=== PATIENT | male | born 1980 | race Caucasian/White ===

== ENCOUNTER → 2021-08-29 | Outpatient (CLI) | payer OTHER ==
--- NOTE | 2021-08-30 02:14 | MR ---
EXAMINATION TYPE: MR knee RT wo con DATE OF EXAM: 08/29/2021 COMPARISON: None HISTORY: Rt knee pain Multiplanar multiecho imaging of the right knee with no contrast. The anterior and posterior cruciate ligaments are intact. There is mild knee joint effusion. The late ral meniscus is intact. Medial meniscus is within normal limits. The collateral ligaments are intact No evidence of a fracture. No focal bone destruction. No bone edema. The patella is intact. IMPRESSION: There is a mild knee joint effusion there is consistent with some mild synovitis. No evidence of liga ment or meniscal tear. No fracture
== END | disposition home or self-care (01) ==
LOC: RADMRIMAIN 19:40
PROVIDERS: ATTEND Orthopaedic Surgery
DX: M25.461 Effusion, right knee (principal)

== ENCOUNTER → 2022-12-30 | Outpatient (CLI) | payer MEDICARE ==
--- NOTE | 2023-01-01 17:26 | MR ---
EXAMINATION TYPE: MR knee RT wo con DATE OF EXAM: 12/30/2022 COMPARISON: 08/29/2021 HISTORY: Rt knee inner pain and swelling TECHNIQUE: Multiplanar, multisequence imaging of the right knee is performed without IV contrast. FINDINGS: There is no bone contusion or fracture. There is physiologic fluid within the joint space. The cruciate and collateral ligaments are intact There is no evidence of meniscal tear. The quadriceps and patellar tendons are intact. The articular cartilages in all 3 compartments of the knee are normal and there is no joint space troy rowing. IMPRESSION: No significant abnormality seen.
== END | disposition home or self-care (01) ==
LOC: RADMRIMAIN 12:48
PROVIDERS: ATTEND Orthopaedic Surgery
DX: M25.561 Pain in right knee (principal); M79.89 Other specified soft tissue disorders

== ENCOUNTER → 2023-12-07 | Outpatient (CLI) | payer MEDICARE ==
--- NOTE | 2023-12-08 10:19 | CA ---
Transthoracic Echo Report Name: Leonel Fine Age: 43 Gender: M : 1980 Exam Date: 12/07/2023 17:53 Exam Location: [place] [facility] Ht (in): 68 Wt (lb): 190 Ordering Physician: Tye De Dios DO Attending/Referring Phys: Letha Garcia PAC Dental Chairside Assistant Anisha Will RDCS Procedure CPT: Indications: R07.9 CHEST PAIN Cardiac Hx: Technical Quality: Good Contrast 1: Total Dose (mL): Contrast 2: Total Dose (mL): MEASUREMENTS (Male / Female) Normal Values 2D ECHO LV Diastolic Diameter PLAX 5.3 cm 4.2 - 5.9 / 3.9 - 5.3 cm LV Systolic Diameter PLAX 3.5 cm IVS Diastolic Thickness 0.9 cm 0.6 - 1.0 / 0.6 - 0.9 cm LVPW Diastolic Thickness 0.8 cm 0.6 - 1.0 / 0.6 - 0.9 cm LV Relative Wall Thickness 0.3 LVOT Diameter 2.2 cm LV Diastolic Volume MOD BP 125.4 cm??? 67 - 155 / 56 - 104 cm??? LV Systolic Volume MOD BP 44.7 cm??? 22 - 58 / 19 - 49 cm??? LV Ejection Fraction MOD BP 64.4 % >= 55 % LV Cardiac Index MOD BP 3182.5 cm???/min???m??? LV Diastolic Volume MOD 4C 122.0 cm??? LV Systolic Volume MOD 4C 47.9 cm??? LV Ejection Fraction MOD 4C 60.8 % LV Cardiac Index MOD 4C 2922.6 cm???/min???m??? LV Diastolic Length 4C 8.7 cm LV Systolic Length 4C 6.6 cm LV Diastolic Volume MOD 2C 126.8 cm??? LV Systolic Volume MOD 2C 41.7 cm??? LV Ejection Fraction MOD 2C 67.1 % LV Cardiac Index MOD 2C 3354.5 cm???/min???m??? LV Diastolic Length 2C 8.6 cm LV Systolic Length 2C 6.6 cm LA Volume 35.8 cm??? 18 - 58 / 22 - 52 cm??? LA Volume Index 17.4 cm???/m??? 16 - 28 cm???/m??? Ascending Aorta Diameter 3.0 cm DOPPLER AV Peak Velocity 159.1 cm/s AV Peak Gradient 10.1 mmHg AV Mean Velocity 109.5 cm/s AV Mean Gradient 5.3 mmHg AV Velocity Time Integral 31.3 cm LVOT Peak Velocity 136.2 cm/s LVOT Peak Gradient 7.4 mmHg LVOT Velocity Time Integral 26.4 cm LVOT Stroke Volume 101.3 cm??? LVOT Stroke Volume Index 50.6 ml/m??? LVOT Cardiac Index 3993.2 cm???/min???m??? AV Area Cont Eq vti 3.2 cm??? AV Area Cont Eq pk 3.3 cm??? MV Area PHT 4.1 cm??? Mitral E Point Velocity 54.4 cm/s Mitral A Point Velocity 71.6 cm/s Mitral E to A Ratio 0.8 MV Deceleration Time 187.0 ms PV Peak Velocity 131.8 cm/s PV Peak Gradient 7.0 mmHg FINDINGS Left Ventricle Left ventricular ejection fraction is estimated at 60 %. Left ventricular cavity size normal. Left ventricular wall thickness normal. No obvious regional wall motion abnormalities. Right Ventricle Normal right ventricular size and function. Unable to estimate the right ventricular systolic pressure. Right Atrium Normal right atrial size. Left Atrium Normal left atrial size. Mitral Valve Structurally normal mitral valve. No evidence for mitral valve prolapse. No mitral stenosis. Trace mitral regurgitation. Aortic Valve Trileaflet aortic valve. No aortic valve stenosis or regurgitation. Tricuspid Valve Structurally normal tricuspid valve. No tricuspid stenosis. Trace tricuspid regurgitation. Pulmonic Valve Structurally normal pulmonic valve. No pulmonic stenosis. Trace pulmonic regurgitation. Pericardium No pericardial effusion. Aorta Normal size aortic root and proximal ascending aorta. CONCLUSIONS Normal LV function Previewed by: Dr. Wilfrido Barr MD (Electronically Signed) Final Date: 08 December 2023 10:18
== END | disposition home or self-care (01) ==
LOC: RADECHMAIN 17:48
PROVIDERS: ATTEND Family Medicine
CPT/HCPCS: 93306

== ENCOUNTER → 2023-12-20 | Outpatient (CLI) | payer MEDICARE ==
--- NOTE | 2023-12-20 12:04 | CA ---
Stress Echo Report Leonel Fine Age: 43 Gender: M : 1980 Exam Date: 12/20/2023 10:42 Exam Location: [place] Stress Ht (in): 69 Wt (lb): 190 Ordering Physician: Tye De Dios DO Referring Physician: Letha Garcia [employer]: [employer] Procedure CPT: Indication: R07.9 CHEST PAIN,R53.82 FATIG,Z82.49 ISCHEM HEART ICD-9 Codes: Rhythm: Patient History: Cardiac Medications: Medications in past 24 hours: Contrast: N/A Stress Results Protocol: Edi Total dose(mL): NA Exercise Duration (min:sec): 10:[address] Depression (mm): Angina Score: Araujo Score: METS: 11.7 Resting HR: 87 Resting BP: 106 / 65 Peak HR: 160 Peak BP: 169 / 74 Max Predicted HR: 179 89 % Max Predicted HR Target HR: 152 Double Product: [id number] Stress Summary: BP Response: Reason for Termination: Reached target heart rate or work-load Cardiac Symptoms: No Symptoms ECG Analysis Resting ECG: Stress ECG: Arrhythmia: Echo Analysis Resting Echo: Peak Echo Analysis: MEASUREMENTS (Male/Female) Normal Values CONCLUSIONS Excellent exercise tolerance Normal electrocardiogram and echocardiogram with exercise Dr. Riley Colin MD (Electronically Signed) Final Date: 20 December 2023 12:03
== END | disposition home or self-care (01) ==
LOC: RADNMMAIN 09:02
PROVIDERS: ATTEND Family Medicine
DX: R07.9 Chest pain, unspecified (principal); R53.82 Chronic fatigue, unspecified; Z82.49 Family history of ischemic heart disease and other diseases of the circulatory system
CPT/HCPCS: 93351